=== PATIENT | female | born 1960 | race Caucasian/White ===

== ENCOUNTER 2016-08-03 17:58 | Emergency (ER) | payer MEDICAID ==
[~2016-08-03] VITALS: Ht 160 cm; Wt 77.1 kg
[~2016-08-03 17:58] MED LIST: BENA10TA25 PO; PRAV10TA21 PO
[2016-08-03 18:18] VITALS: BP 121/78
--- NOTE | 2016-08-03 19:21 | NUR ---
Patient to bed 04.
--- NOTE | 2016-08-03 19:29 | NUR ---
56Y/F PT. PRESENTS TO ED WITH C/O RT. BREAST PAIN. PT. STATES PAIN START 3 DAYS AGO. NO FEVER. HX. HTN. AAOX4, AMBULATORY WITH STEADY GAIT. RT. BREAT MILD REDNESS, NO DISCHARGE. VSS, NO S/SX OF DISTRESS AT THIS TIME. VSS, ER MADE AWARE OF PT. STATUS.
--- NOTE | 2016-08-03 19:51 | NUR ---
Dr. Peoples evalauting patient at bedside.
[2016-08-03] MEDS ORDERED: IBUPROFEN 600 MG TAB PO ONE (19:55)
[2016-08-03 20:10] LABS: BASOPHILS # (AUTO) 0.2 K/uL (0.00-0.22); EOSINOPHILS # (AUTO) 0.1 K/uL (0-0.4); EOSINOPHILS % (AUTO) 1.5 % (0.0-4.0); HEMATOCRIT 40.4 % (36-48); HEMOGLOBIN 13.3 g/dL (12.0-16.0); LYMPHOCYTES # (AUTO) 2.3 K/uL (2.5-16.5); LYMPHOCYTES % (AUTO) 33.6 % (20.5-51.1); MEAN CORPUSCULAR HEMOGLOBIN 28 pg (27-31); MEAN CORPUSCULAR HGB CONC 33 g/dL (33-37); MEAN CORPUSCULAR VOLUME 86 fL (80-94); MONOCYTES # (AUTO) 0.3 K/uL (0.8-1.0); MONOCYTES % (AUTO) 4.2 % (1.7-9.3); PLATELET COUNT (AUTO) 283 K/uL (140-450); RED CELL DISTRIBUTION WIDTH 13.5 % (11.6-13.7); WHITE BLOOD COUNT (AUTO) 6.9 K/uL (4.8-10.8)
[2016-08-03 20:46] LABS: ALBUMIN 3.5 g/dL (3.4-5.0); ANION GAP 10.5 (8-16); CALCIUM 8.9 mg/dL (8.5-10.1); CARBON DIOXIDE 30.9 mmol/L (21-32); CREATININE 0.6 mg/dL (0.6-1.3); POTASSIUM 3.4 mmol/L (3.5-5.1); TOTAL BILIRUBIN 0.2 mg/dL (0.0-1.0); TOTAL PROTEIN, SERUM 7.2 g/dL (6.4-8.2)
--- NOTE | 2016-08-03 21:40 | NUR ---
Patient discharged with v/s stable. Written and verbal after care instructions given and explained. Patient alert, oriented and verbalized understanding of instructions. Ambulatory with steady gait. All questions addressed prior to discharge. ID band removed. Patient advised to follow up with PMD. Rx of KEFLEX 500 MG, NORCO 5/325 MG, BACTRIM DS 800/160MG given. Patient educated on indication of medication including possible reaction and side effects. Opportunity to ask questions provided and answered.
--- NOTE | 2016-08-03 21:41 | NUR ---
I gave CD of US/XRAY and copy of Labs. Authorization for Disclosure signed.
[2016-08-03 21:42] VITALS: BP 143/90
== END 2016-08-03 21:40 | disposition home or self-care (01) ==
LOC: MED 17:58
DX: N64.4 Mastodynia (principal); I10 Essential (primary) hypertension
CPT/HCPCS: 36415; 71010; 76641; 80053; 85025; 85651; 86140; 99285

== ENCOUNTER 2016-12-18 15:33 | Emergency (ER) | payer MEDICAID ==
[~2016-12-18] VITALS: Ht 158.8 cm; Wt 86.3 kg
[2016-12-18 15:52] VITALS: BP 137/87
--- NOTE | 2016-12-18 16:54 | NUR ---
PATIENT AMBULATED TO BED 3 AT THIS TIME.
--- NOTE | 2016-12-18 17:00 | NUR ---
PATIENT PRESENTS TO ED WITH od mild swelling under od, increased tears, photophobia, sharp pain . PT STATES . DENIES N/V/D; SKIN IS PINK/WARM/DRY; AAOX4 WITH EVEN AND STEADY GAIT; LUNGS CLEAR BL; HR EVEN AND REGULAR; PT DENIES ANY FEVER, CP, SOB, OR COUGH AT THIS TIME; PATIENT STATES PAIN OF 2/10 AT THIS TIME; VSS; PATIENT POSITIONED FOR COMFORT; HOB ELEVATED; BEDRAILS UP X2; BED DOWN. ER MD MADE AWARE OF PT STATUS.
[2016-12-18 17:22] VITALS: BP 137/87
--- NOTE | 2016-12-18 17:22 | NUR ---
Patient discharged with v/s stable. Written and verbal after care instructions given and explained. Patient alert, oriented and verbalized understanding of instructions. Ambulatory with steady gait. All questions addressed prior to discharge. ID band removed. Patient advised to follow up with PMD. Rx of motrin/flonase/bactrim given. Patient educated on indication of medication including possible reaction and side effects. Opportunity to ask questions provided and answered.
== END 2016-12-18 17:22 | disposition home or self-care (01) ==
LOC: MED 15:33
DX: J31.0 Chronic rhinitis (principal); R03.0 Elevated blood-pressure reading, without diagnosis of hypertension; I10 Essential (primary) hypertension
CPT/HCPCS: 99283

== ENCOUNTER 2017-05-29 18:20 | Emergency (ER) | payer MEDICAID ==
[~2017-05-29] VITALS: Ht 160 cm; Wt 85.3 kg
[2017-05-29 18:41] VITALS: BP 113/89
--- NOTE | 2017-05-29 18:52 | NUR ---
STREP THROAT SWABS COLLECTED AND WALKED TO LAB
--- NOTE | 2017-05-29 20:28 | NUR ---
Dr. Maya evaluating patient.
[2017-05-29 20:44] VITALS: BP 124/63
--- NOTE | 2017-05-29 20:44 | NUR ---
Patient discharged with v/s stable. Written and verbal after care instructions given and explained. Patient alert, oriented and verbalized understanding of instructions. Ambulatory with steady gait. All questions addressed prior to discharge. ID band removed. Patient advised to follow up with PMD. Rx of MOTRIN 600MG AND AMOX 500MG given. Patient educated on indication of medication including possible reaction and side effects. Opportunity to ask questions provided and answered.
[2017-05-30 02:11] LABS: APPEARANCE,URINE SL CLOUDY (CLEAR); BILIRUBIN,URINE NEGATIVE (NEGATIVE); BLOOD, URINE TRACE-I (NEGATIVE); COLOR,URINE YELLOW (YELLOW); LEUKOCYTE ESTERASE ,URINE 1+ (NEGATIVE); NITRITE, URINE POSITIVE (NEGATIVE); PH,URINE 5.5 (5.0-9.0); UGLUCOSE NEGATIVE (NEGATIVE)
[2017-05-30 02:37] LABS: RBC,URINE 0-5 (RARE) /HPF (0-5); WBC,URINE 60-80 /HPF (0-5)
== END 2017-05-29 20:44 | disposition home or self-care (01) ==
LOC: MED 18:20
DX: J02.9 Acute pharyngitis, unspecified (principal); I10 Essential (primary) hypertension; Z79.899 Other long term (current) drug therapy
CPT/HCPCS: 81001; 87081; 87086; 87186; 99284

== ENCOUNTER 2018-08-23 16:49 | Emergency (ER) | payer MEDICAID ==
[~2018-08-23] VITALS: Ht 160 cm; Wt 91.6 kg
[2018-08-23 16:53] VITALS: BP 134/62
--- NOTE | 2018-08-23 17:10 | NUR ---
PT C/O BL ANKLE PAIN X5 HOURS. PT REPORTS PLAYING WITH GRANDCHILD AT PLAYGROUND AND FALLING ABOUT 5 FEET, LANDING ON FEET. BL SWELLING IN MEDIAL SIDE OF ANKLES. +CMS. PT REPORTS 7/10 PAIN IN ANKLES THAT INCREASES WITH WALKING.MEDHX: HTN, HLD. PATIENT POSITIONED FOR COMFORT; BEDRAILS UP X1; BED DOWN. ER MD MADE AWARE OF PT STATUS.
--- NOTE | 2018-08-23 17:10 | NUR ---
Note undone in EDM - 08/23/18 at 1724 by [facility] PT C/O BL ANKLE PAIN& SWOLLEN X5 HOURS. PT REPORTS PLAYING WITH GRANDCHILD AT PLAYGROUND AND FALLING ABOUT 5 FEET, LANDING ON FEET. BL SWELLING IN MEDIAL SIDE OF ANKLES. +CMS. PT REPORTS 7/10 PAIN IN ANKLES THAT INCREASES WITH WALKING.MEDHX: HTN, HLD. PATIENT STATES PAIN OF 7/10 AT THIS TIME; VSS; PATIENT POSITIONED FOR COMFORT; HOB ELEVATED; BEDRAILS UP X1; BED DOWN. ER MD MADE AWARE OF PT STATUS.
--- NOTE | 2018-08-23 17:25 | NUR ---
Patient being evaluated by DR ORR at bedside.
--- NOTE | 2018-08-23 17:46 | NUR ---
Provided PT with an zhou wrap to her left ankle. Conducted one on one instruction on crutches use, PT demonstrated proper use.
[2018-08-23] MEDS ORDERED: IBUPROFEN 600 MG TAB PO ONE (18:05)
[2018-08-23 18:33] VITALS: BP 125/61
--- NOTE | 2018-08-23 18:33 | NUR ---
Note undone in EDM - 08[facility]23[facility]18 [facility] discharged BY DR ORR with v/s stable. Written and verbal after care instructions given and explained. Patient alert, oriented and verbalized understanding of instructions. Ambulatory with steady gait. All questions addressed prior to discharge. ID band removed. Patient advised to follow up with PMD. Rx of NAPROXYN given. Patient educated on indication of medication including possible reaction and side effects. Opportunity to ask questions provided and answered.
--- NOTE | 2018-08-23 18:33 | NUR ---
Patient discharged BY DR ORR with v/s stable. Written and verbal after care instructions given and explained. Patient alert, oriented and verbalized understanding of instructions. Ambulatory with CRUTCHES. All questions addressed prior to discharge. ID band removed. Patient advised to follow up with PMD. Rx of NAPROXYN given. Patient educated on indication of medication including possible reaction and side effects. Opportunity to ask questions provided and answered.
== END 2018-08-23 18:33 | disposition home or self-care (01) ==
LOC: MED 16:49
DX: S93.402A Sprain of unspecified ligament of left ankle, initial encounter (principal); M25.471 Effusion, right ankle; I10 Essential (primary) hypertension; E78.5 Hyperlipidemia, unspecified; Z90.49 Acquired absence of other specified parts of digestive tract; Z79.899 Other long term (current) drug therapy; W19.XXXA Unspecified fall, initial encounter; Y93.89 Activity, other specified; Y92.89 Other specified places as the place of occurrence of the external cause; Y99.8 Other external cause status
CPT/HCPCS: 73610; 99283

== ENCOUNTER 2022-12-11 15:37 | Inpatient (IN) | payer MEDICAID ==
[~2022-12-11] VITALS: Ht 162.6 cm; Wt 90.7 kg
[2022-12-11 16:01] VITALS: BP 119/62; PULSE 162; RESP 20; TEMP 99.2; O2SAT 96
[2022-12-11] MEDS ORDERED: ONDANSETRON 4 MG/2 ML VIAL IVP ONE (16:45)
[2022-12-11] MEDS ORDERED: NACL 0.9% 2,000 ML IV ONE (16:45)
[2022-12-11] MEDS ORDERED: KETOROLAC 15 MG/ML VIAL IVP ONE (16:45)
[2022-12-11 17:27] LABS: HEMATOCRIT 38.1 % (36-48); HEMOGLOBIN 12.6 g/dL (12.0-16.0); MEAN CORPUSCULAR HEMOGLOBIN 29 pg (27-31); MEAN CORPUSCULAR HGB CONC 33 g/dL (33-37); MEAN CORPUSCULAR VOLUME 85.8 fL (80-94); PLATELET COUNT (AUTO) 295 K/uL (140-450); RED BLOOD CELL COUNT(AUTO) 4.44 MIL/uL (4.20-5.40); RED CELL DISTRIBUTION WIDTH 14.5 % (11.6-13.7); WHITE BLOOD COUNT (AUTO) 23.8 K/uL (4.8-10.8)
[2022-12-11 17:44] LABS: INR 1.2 (0.8-1.2); PARTIAL THROMBOPLASTIN TIME 29.2 secs (22-35.6); PROTHROMBIN TIME 12.5 secs (10.8-13.4)
[2022-12-11 17:50] LABS: LACTIC ACID 1.3 mmol/L (0.4-2.0)
[2022-12-11 17:56] LABS: ALANINE AMINOTRANSFERASE 25 U/L (12-78); ALBUMIN 3.4 g/dL (3.4-5.0); ALKALINE PHOSPHATASE 103 U/L (50-136); ANION GAP 16.5 (8-16); ASPARTATE AMINOTRANSFERASE 29 U/L (15-37); CALCIUM 9.1 mg/dL (8.5-10.1); CARBON DIOXIDE 24.5 mmol/L (21-32); CHLORIDE 96 mmol/L (98-107); CREATININE 1.2 mg/dL (0.6-1.3); GFR ARICAN-AMERICAN 58 mL/min (>90); GFR NON ARICAN-AMERICAN 48 mL/min (>90); GLUCOSE 180 mg/dL (74-106); LIPASE 55 U/L (73-393); SODIUM SERUM 134 mmol/L (136-145); THYROID STIMULATING HORMONE 0.96 uIU/mL (0.34-3.74); TOTAL BILIRUBIN 1.2 mg/dL (0.0-1.0); TOTAL PROTEIN, SERUM 7.5 g/dL (6.4-8.2); UREA NITROGEN, BLOOD 18 mg/dL (7-18)
[2022-12-11 17:58] LABS: LYMPHOCYTES % (MANUAL) 4 % (20-46); MONOCYTES % (MANUAL) 2 % (5-12); PLATELET ESTIMATE ADEQUATE
[2022-12-11] MEDS ORDERED: cefTRIAXone 1,000 MG VIAL ONE (18:31)
[2022-12-11 19:06] LABS: APPEARANCE,URINE CLOUDY (CLEAR); BILIRUBIN,URINE 1+ (NEGATIVE); BLOOD, URINE 1+ (NEGATIVE); COLOR,URINE YELLOW (YELLOW); LEUKOCYTE ESTERASE ,URINE 3+ (NEGATIVE); NITRITE, URINE NEGATIVE (NEGATIVE); PROTEIN,URINE 2+ (NEGATIVE); UGLUCOSE NEGATIVE (NEGATIVE)
[2022-12-11 19:10] LABS: ICTOTEST NEGATIVE (NEGATIVE)
[2022-12-11 19:15] LABS: BACTERIA,URINE 3+ /HPF (None Seen); COARSE GRANULAR CASTS,URINE 0-10 /LPF (None Seen); MUCUS,URINE 2+ /LPF (None Seen); RBC,URINE 11-20 (MOD) /HPF (0-5); SQUAMOUS EPITHELIAL CELL,UR 4-10 (MOD) /LPF (0-3 (FEW)); TRICHOMONAS,URINE None Seen /HPF (None Seen); WBC,URINE 20-60 /HPF (0-5); YEAST,URINE None Seen /HPF (None Seen)
[2022-12-11] MEDS ORDERED: POTASSIUM CHLORIDE 10 MEQ TABER PO ONE (22:10)
[2022-12-12] VITALS (7 sets, daily range): BP systolic 96–131; BP diastolic 52–76; PULSE 68–142; RESP 12–20; TEMP 98.2–102.2; O2SAT 92–99
[2022-12-12] MEDS ORDERED: POTASSIUM CHLORIDE 10 MEQ TABER PO PRN (04:45)
[2022-12-12] MEDS ORDERED: HYDROcodone/APAP 7.5/325 MG 1 TAB PO PRN (04:45)
[2022-12-12] MEDS ORDERED: DOCUSATE SODIUM 100 MG GELCAP PO PRN (04:45)
[2022-12-12] MEDS ORDERED: ZOLPIDEM 5 MG TAB PO PRN (04:45)
[2022-12-12] MEDS ORDERED: ONDANSETRON 4 MG/2 ML VIAL IM/IVP PRN (04:45)
[2022-12-12] MEDS ORDERED: guaiFENesin DM 200/20 MG-10 ML 10 ML UDC PO PRN (04:45)
[2022-12-12] MEDS ORDERED: LISI-487 PO (04:54)
[2022-12-12] MEDS: PIPERACILLIN/TAZOBACTAM 3.375 GM in DEXTROSE 5% 50 ML IV SCH ×3 (05:00→21:27)
[2022-12-12 06:46] LABS: BASOPHILS % (AUTO) 0.2 % (0.0-2.0); EOSINOPHILS % (AUTO) 0.1 % (0.0-4.0); HEMOGLOBIN 11.3 g/dL (12.0-16.0); LYMPHOCYTES # (AUTO) 0.9 K/uL (2.5-16.5); LYMPHOCYTES % (AUTO) 5.3 % (20.5-51.1); MEAN CORPUSCULAR HEMOGLOBIN 28 pg (27-31); MEAN CORPUSCULAR HGB CONC 33 g/dL (33-37); MEAN CORPUSCULAR VOLUME 85.4 fL (80-94); MONOCYTES # (AUTO) 0.7 K/uL (0.8-1.0); MONOCYTES % (AUTO) 4.2 % (1.7-9.3); NEUTROPHILS # (AUTO) 15.3 K/uL (1.8-7.7); NEUTROPHILS % (AUTO) 90.2 % (42.2-75.2); PLATELET COUNT (AUTO) 291 K/uL (140-450); RED BLOOD CELL COUNT(AUTO) 3.98 MIL/uL (4.20-5.40); RED CELL DISTRIBUTION WIDTH 14.8 % (11.6-13.7)
[2022-12-12] MEDS: NACL 0.9% 1,000 ML IV SCH ×3 (07:08→21:31)
[2022-12-12 07:09] LABS: ALBUMIN 2.8 g/dL (3.4-5.0); ANION GAP 12.1 (8-16); CALCIUM 8.3 mg/dL (8.5-10.1); CARBON DIOXIDE 28.1 mmol/L (21-32); POTASSIUM 4.2 mmol/L (3.5-5.1); TOTAL BILIRUBIN 0.6 mg/dL (0.0-1.0); TOTAL PROTEIN, SERUM 6.5 g/dL (6.4-8.2)
[2022-12-12] MEDS: PANTOPRAZOLE 40 MG TABEC PO SCH (09:28)
[2022-12-12 11:28] LABS: FREE T4 (FREE THYROXINE) 1.56 ng/dL (0.76-1.46); THYROID STIMULATING HORMONE 0.95 uIU/mL (0.34-3.74)
[2022-12-12] MEDS: ACETAMINOPHEN 325 MG TAB PO PRN ×2 (16:27→23:21)
[2022-12-12] MEDS ORDERED: NACL 0.9% 500 ML IV ONE (23:05)
[2022-12-13] VITALS: BP 114/62; PULSE 112; PULSE 114; RESP 18; TEMP 99.1; O2SAT 94
[2022-12-13 04:00] VITALS: BP 120/63; PULSE 79; RESP 17; TEMP 97.4; O2SAT 96
[2022-12-13] MEDS: NACL 0.9% 1,000 ML IV SCH ×4 (05:48→23:56)
[2022-12-13 05:49] LABS: BASOPHILS % (AUTO) 0.2 % (0.0-2.0); HEMATOCRIT 32.3 % (36-48); HEMOGLOBIN 10.9 g/dL (12.0-16.0); LYMPHOCYTES # (AUTO) 0.4 K/uL (2.5-16.5); LYMPHOCYTES % (AUTO) 5.4 % (20.5-51.1); MEAN CORPUSCULAR HEMOGLOBIN 29 pg (27-31); MEAN CORPUSCULAR HGB CONC 34 g/dL (33-37); MEAN CORPUSCULAR VOLUME 85.1 fL (80-94); MONOCYTES # (AUTO) 0.3 K/uL (0.8-1.0); MONOCYTES % (AUTO) 3.8 % (1.7-9.3); NEUTROPHILS # (AUTO) 7.1 K/uL (1.8-7.7); PLATELET COUNT (AUTO) 244 K/uL (140-450); RED BLOOD CELL COUNT(AUTO) 3.79 MIL/uL (4.20-5.40); RED CELL DISTRIBUTION WIDTH 14.7 % (11.6-13.7)
[2022-12-13] MEDS: PIPERACILLIN/TAZOBACTAM 3.375 GM in DEXTROSE 5% 50 ML IV SCH ×3 (05:49→20:38)
[2022-12-13 06:37] LABS: NEUTROPHILS % (AUTO) 90.6 % (42.2-75.2); WHITE BLOOD COUNT (AUTO) 7.8 K/uL (4.8-10.8)
[2022-12-13 06:39] LABS: ALBUMIN 2.3 g/dL (3.4-5.0); ANION GAP 11.4 (8-16); CALCIUM 7.6 mg/dL (8.5-10.1); CARBON DIOXIDE 24.9 mmol/L (21-32); CREATININE 0.8 mg/dL (0.6-1.3); POTASSIUM 3.3 mmol/L (3.5-5.1); TOTAL BILIRUBIN 0.4 mg/dL (0.0-1.0); TOTAL PROTEIN, SERUM 5.9 g/dL (6.4-8.2)
[2022-12-13 08:00] VITALS: BP 156/81; PULSE 84; PULSE 94; RESP 17; TEMP 98.7; O2SAT 100
[2022-12-13] MEDS ORDERED: NON-FORMULARY ITEM (Pravastatin Sodium* (Pravachol*) 10 MG) PO SCH (09:00)
[2022-12-13] MEDS: ATORVASTATIN 20 MG TAB PO SCH (09:45)
[2022-12-13] MEDS: PANTOPRAZOLE 40 MG TABEC PO SCH (09:46)
[2022-12-13] MEDS: TAMSULOSIN 0.4 MG CAP PO SCH (09:46)
[2022-12-13] MEDS: BENAZEPRIL 10 MG TAB PO SCH (09:46)
[2022-12-13 12:00] VITALS: BP 122/61; PULSE 98; PULSE 99; RESP 17; TEMP 99.1; O2SAT 99
[2022-12-13] MEDS ORDERED: MEPERIDINE 25 MG/ML SYR IVP PRN (12:40)
[2022-12-13] MEDS ORDERED: ONDANSETRON 4 MG/2 ML VIAL IVP PRN (12:40)
[2022-12-13] MEDS ORDERED: HYDROmorphone 1 MG/ML AMP IVP PRN (12:40)
[2022-12-13] MEDS ORDERED: LACTATED RINGERS 1,000 ML IV SCH (12:40)
[2022-12-13] MEDS ORDERED: fentaNYL citrate 0.05 MG/ML VIAL ONE (12:50)
[2022-12-13] MEDS ORDERED: ePHEDrine 50 MG/ML VIAL ONE (13:15)
[2022-12-13] MEDS ORDERED: ONDANSETRON 4 MG/2 ML VIAL ONE (13:15)
[2022-12-13] MEDS ORDERED: SEVOFLURANE 250 ML BTL INH ONE (13:15)
[2022-12-13] MEDS ORDERED: fentaNYL citrate 0.05 MG/ML - 50mL vial IV ONE (13:15)
[2022-12-13] MEDS ORDERED: DEXAMETHASONE 10 MG/ML VIAL ONE (13:15)
[2022-12-13] MEDS ORDERED: PROPOFOL 200 MG/20 ML VIAL IV ONE (13:15)
[2022-12-13 15:13] LABS: APPEARANCE,URINE CLEAR (CLEAR); BILIRUBIN,URINE NEGATIVE (NEGATIVE); BLOOD, URINE 1+ (NEGATIVE); COLOR,URINE YELLOW (YELLOW); LEUKOCYTE ESTERASE ,URINE 1+ (NEGATIVE); NITRITE, URINE NEGATIVE (NEGATIVE); PROTEIN,URINE NEGATIVE (NEGATIVE); UGLUCOSE NEGATIVE (NEGATIVE); UROBILINOGEN,URINE 0.2 EU/dL (0.2 - 1)
[2022-12-13 15:23] LABS: BACTERIA,URINE 1+ /HPF (None Seen); MUCUS,URINE 1+ /LPF (None Seen); SQUAMOUS EPITHELIAL CELL,UR 0-3 (FEW) /LPF (0-3 (FEW)); TRICHOMONAS,URINE None Seen /HPF (None Seen); YEAST,URINE None Seen /HPF (None Seen)
[2022-12-13 16:00] VITALS: BP 100/57; PULSE 93; RESP 19; TEMP 98; O2SAT 96
[2022-12-13 20:00] VITALS: PULSE 95; RESP 20; O2SAT 97
[2022-12-14] MEDS: ACETAMINOPHEN 325 MG TAB PO PRN (01:04)
[2022-12-14 04:00] VITALS: BP 119/59; PULSE 97; RESP 19; TEMP 96.8; O2SAT 97
[2022-12-14 05:42] LABS: BASOPHILS % (AUTO) 0.1 % (0.0-2.0); HEMATOCRIT 31.6 % (36-48); HEMOGLOBIN 10.7 g/dL (12.0-16.0); LYMPHOCYTES # (AUTO) 0.6 K/uL (2.5-16.5); LYMPHOCYTES % (AUTO) 11.9 % (20.5-51.1); MEAN CORPUSCULAR HEMOGLOBIN 29 pg (27-31); MEAN CORPUSCULAR HGB CONC 34 g/dL (33-37); MEAN CORPUSCULAR VOLUME 84.8 fL (80-94); MONOCYTES # (AUTO) 0.2 K/uL (0.8-1.0); MONOCYTES % (AUTO) 4.2 % (1.7-9.3); NEUTROPHILS # (AUTO) 4.3 K/uL (1.8-7.7); NEUTROPHILS % (AUTO) 83.8 % (42.2-75.2); PLATELET COUNT (AUTO) 251 K/uL (140-450); RED BLOOD CELL COUNT(AUTO) 3.73 MIL/uL (4.20-5.40); RED CELL DISTRIBUTION WIDTH 14.9 % (11.6-13.7); WHITE BLOOD COUNT (AUTO) 5.2 K/uL (4.8-10.8)
[2022-12-14] MEDS: PIPERACILLIN/TAZOBACTAM 3.375 GM in DEXTROSE 5% 50 ML IV SCH ×2 (05:57→13:48)
[2022-12-14 06:06] LABS: ALBUMIN 2.4 g/dL (3.4-5.0); ANION GAP 13.9 (8-16); CALCIUM 8.5 mg/dL (8.5-10.1); CARBON DIOXIDE 21.7 mmol/L (21-32); CREATININE 0.9 mg/dL (0.6-1.3); POTASSIUM 3.6 mmol/L (3.5-5.1); TOTAL BILIRUBIN 0.3 mg/dL (0.0-1.0)
[2022-12-14 08:00] VITALS: PULSE 56; RESP 20; O2SAT 97
[2022-12-14] MEDS: TAMSULOSIN 0.4 MG CAP PO SCH (08:39)
[2022-12-14] MEDS: ATORVASTATIN 20 MG TAB PO SCH (08:39)
[2022-12-14] MEDS: PANTOPRAZOLE 40 MG TABEC PO SCH (08:41)
[2022-12-14] MEDS: NACL 0.9% 1,000 ML IV SCH ×2 (08:42→13:42)
[2022-12-14] MEDS: BENAZEPRIL 10 MG TAB PO SCH (08:42)
[2022-12-14 16:00] VITALS: BP 112/62; PULSE 64; RESP 18; TEMP 97.8; O2SAT 98
[2022-12-14] MEDS ORDERED: NITR100C7 PO (18:03)
[2022-12-14 18:04] VITALS: BP 112/62; PULSE 64; RESP 18; TEMP 97.8
== END 2022-12-14 18:52 | disposition home or self-care (01) | DRG 720 ==
LOC: MED 15:37 → MMU 12-12 04:48 → OBSVTOIN 12-12 05:04 → MMU 12-12 05:04
PROVIDERS: ADMIT Student in an Organized Health Care Education/Training Program; ATTEND Student in an Organized Health Care Education/Training Program
PROC: BT1D1ZZ Fluoroscopy of Right Kidney, Ureter and Bladder using Low Osmolar Contrast (ICD-10-PCS; 2022-12-13)
PROC: 0T768DZ Dilation of Right Ureter with Intraluminal Device, Via Natural or Artificial Opening Endoscopic (ICD-10-PCS; principal; 2022-12-13 13:00)
DX: A41.9 Sepsis, unspecified organism (principal); E44.0 Moderate protein-calorie malnutrition; E87.1 Hypo-osmolality and hyponatremia; N20.1 Calculus of ureter; I10 Essential (primary) hypertension; E66.9 Obesity, unspecified; E87.6 Hypokalemia; E78.5 Hyperlipidemia, unspecified; Z90.49 Acquired absence of other specified parts of digestive tract; Z68.34 Body mass index [BMI] 34.0-34.9, adult; N39.0 Urinary tract infection, site not specified
CPT/HCPCS: 36415; 71045; 80053; 81001; 83036; 83605; 83690; 84439; 84443; 84484; 85025; 85610; 85730; 87040; 87081; 87086; 96361; 96365; 96375; 99291; C1769; C2617; J0696; J1100; J1885; J2405; J2543; J2704; J3010; J7030; J7060; Q0092